=== PATIENT | male | born 1965 | race Hispanic/Latino ===

== ENCOUNTER 2020-09-05 16:26 | Day surgery (SDC) | payer BC ==
[~2020-09-05 16:26] MED LIST: Dexamethasone 20 MG/5 ML VIAL ONE; Lidocaine 1% PF 5 ML VIAL ONE; Ondansetron PF 4 MG/2 ML Vial ONE; PROPOFOL 200 MG/20 ML VIAL ONE
[2020-09-05] MEDS ORDERED: Ondansetron PF 4 MG/2 ML Vial ONE (16:48)
[2020-09-05] MEDS ORDERED: Morphine 4 MG/ML VIAL ONE (16:48)
[2020-09-05 17:13] LABS: #Monocytes 0.8 thou/uL (0.11-0.59); #Neutrophils 8.9 thou/uL (1.40-6.50); %Basophils 0.1 % (0.0-1.0); %Eosinophils 0.3 % (0.0-10.0); %Lymphocytes 9.2 % (21.0-51.0); %Monocytes 7.3 % (0.0-10.0); Hemoglobin 12.7 g/dL (14.0-18.0); Mean Corpuscular HGB CONC 33.5 g/dL (32.0-36.0); Mean Corpuscular Hemoglobin 30.5 pg (27.0-31.0); Mean Corpuscular Volume 91.2 fL (78.0-98.0); Mean Platelet Volume 7.4 fL (7.4-10.4); Platelet Count 314 thou/uL (130-400); RBC Distribution Width 12.2 % (11.5-14.5); Red Blood Cell (RBC) Count 4.15 mill/uL (4.70-6.10); White Blood Cell (WBC) Count 10.7 thou/uL (4.8-10.8)
--- NOTE | 2020-09-05 17:27 | CT ---
CT ABDOMEN AND PELVIS WITHOUT IV CONTRAST: Date: 09/05/2020 PROVIDED CLINICAL HISTORY: Abdominal pain. FINDINGS: The visualized lung bases are free of significant opacity. There are multiple tiny bilateral renal calculi. There is mild bilateral hydronephrosis and hydrouret er. There is no evidence for a ureteral or bladder calculus. There are several calculi seen within th e proximal urethra, largest of which measures about 6.0 mm. There is moderate distention of the urina ry bladder without surrounding fat stranding. The solid abdominal organs demonstrate an otherwise unremarkable unenhanced Ct appearance. There is mild bilateral perinephric fat stranding. No additional fat stranding, free fluid, or free a ir apparent. There is no evidence for appendicitis. No evidence for bowel obstruction. Scattered athe rosclerotic vascular calcifications are minimal. The osseous structures demonstrate no concerning lytic or blastic lesions. IMPRESSION: 1. Several urethral calculi are demonstrated. There is moderate distention of the urinary bladder wi th attendant mild bilateral hydroureteronephrosis. 2. Bilateral nephrolithiasis. POS: [facility]
[2020-09-05 17:32] LABS: ALT (SGPT) 22 U/L (8-55); AST (SGOT) 16 U/L (5-34); Albumin 3.8 g/dL (3.5-5.0); Alkaline Phosphatase 80 U/L (40-110); Anion Gap 16 mmol/L (10-20); BUN (Urea Nitrogen) 29 mg/dL (8.4-25.7); Bilirubin, Total 0.5 mg/dL (0.2-1.2); Calc. Creatinine Clearance 0 mL/min (70-130); Calcium 9.1 mg/dL (7.8-10.44); Carbon Dioxide 23 mmol/L (22-29); Chloride 102 mmol/L (98-107); Estimated GFR-MDRD 51; Globulin 3.7 g/dL (2.4-3.5); Glucose 280 mg/dL (70-105); Potassium 3.7 mmol/L (3.5-5.1); Protein, Total 7.5 g/dL (6.0-8.3); Sodium 137 mmol/L (136-145)
[2020-09-05 19:08] LABS: SARS-CoV-2 NAA Rapid Test Not Detected (NotDetected)
[2020-09-05] MEDS ORDERED: Midazolam HCl 2 mg/2 ml Vial ONE (19:15)
[2020-09-05] MEDS ORDERED: Fentanyl 100 MCG/2 ML VIAL ONE (19:16)
--- NOTE | 2020-09-05 19:38 | CON ---
DATE OF CONSULTATION: CHIEF COMPLAINT: Urinary retention. HISTORY OF PRESENT ILLNESS: Mr. Ronquillo is a 55-year-old male with no past significant urologic history, who presented with a 1-day history of inability to void. He presented to the [facility] Emergency Department in [place] initially, while he was visiting the family for the holidays, the patient had progressive difficulty voiding. He presented to the emergency department there, multiple attempts at placement of a Diggs catheter were unsuccessful. He was then transferred to [facility] in [place]. Multiple attempts at placement of a Diggs there were unsuccessful as well. A CT of the abdomen and pelvis was performed, which demonstrated some urethral stones and severe distention of the bladder with mild hydroureteronephrosis bilaterally. Urology was consulted for further evaluation. The patient denies any gross hematuria. No history of kidney stones. No prior procedures on his bladder or prostate. Approximately 3 years ago, he believes he did see a urologist one time for some voiding difficulty and was placed on a medication for two months, although he does not recall the name of the medication. No family history of prostate cancer. No other complaints. REVIEW OF SYSTEMS: Full 12-point review of systems was performed and is negative other than that mentioned in HPI. PAST MEDICAL HISTORY: Type 2 diabetes, hyperlipidemia, hypercholesterolemia, hypertension. PAST SURGICAL HISTORY: Appendectomy, right hip surgery. SOCIAL HISTORY: No alcohol, tobacco, or illicit drugs. He lives at home with family. ALLERGIES: NO KNOWN DRUG ALLERGIES. FAMILY HISTORY: Noncontributory. MEDICATIONS: 1. Metformin. 2. Losartan/hydrochlorothiazide. 3. Amlodipine. 4. Prednisone. 5. Glipizide. PHYSICAL EXAMINATION: VITAL SIGNS: Blood pressure 177/97, pulse 85, respirations 18, temperature 98.1, oxygen saturation 95% on room air. GENERAL: He is awake and alert. No apparent distress. CARDIOVASCULAR: Regular rhythm. PULMONARY: Breathing unlabored. ABDOMEN: Soft, positive tenderness to palpation in the suprapubic area. Suprapubic fullness. No CVA tenderness. EXTREMITIES: Warm and well perfused. No edema. NEUROLOGIC: No focal deficits. LABORATORY DATA: White blood cell count 10.7, hemoglobin 12.7, hematocrit 37.9, platelets 314. Sodium 137, potassium 3.7, chloride 102, bicarb 23, BUN 29, creatinine 1.44, glucose 280. RADIOLOGY DATA: CT of the abdomen and pelvis as stated above. These films were reviewed and agreed with radiologist's interpretation. ASSESSMENT: A 55-year-old male with urinary retention, urethral stones, bilateral hydroureteronephrosis. PLAN: I reviewed the patient's clinical scenario with him. I explained that the etiology of his urinary retention is unclear. He does have several urethral stones, this may be contributing. He may also have a stricture with some associated calcifications. I discussed options with the patient. After indications/risks/benefits/alternatives/possible outcomes were discussed with the patient in detail, he elects to proceed with cystoscopy, possible urethral stone removal, dilation, Diggs catheter placement, and all indicated procedures. Job ID: [id number]
--- NOTE | 2020-09-05 20:55 | OP ---
DATE OF PROCEDURE: 09/05/2020 CANDY VENDOR: None. PREPROCEDURE DIAGNOSES: 1. Urinary retention. 2. Urethral stones. POSTPROCEDURE DIAGNOSES: 1. Urinary retention. 2. Proximal bulbar urethral stricture approximately 2 cm in length. ANESTHESIA: LMA anesthesia. COMPLICATIONS: None. PROCEDURE PERFORMED: Cystoscopy with dilation of urethral stricture. FLUID: See Anesthesia record. BLOOD LOSS: Minimal. SPECIMENS: None. POSTPROCEDURE STATUS: Satisfactory. INDICATIONS FOR PROCEDURE: Mr. Ronquillo is a 55-year-old male, who presented as a transfer from [facility] with urinary retention. Multiple attempts of Diggs catheter placement were unsuccessful. The patient had a CT scan, which demonstrated possible urethral stones and a massively distended bladder with bilateral hydroureteronephrosis. After indications/risks/benefits/alternatives/possible outcomes were discussed with the patient in detail, he elected to proceed with cystoscopy, possible removal of urethral stones, dilation, and all indicated procedures. DESCRIPTION OF PROCEDURE: The patient was taken to the operating room and after successful induction of LMA anesthesia, he was placed in the dorsal lithotomy position. His genitalia were prepped and draped in usual sterile fashion. A time-out was performed, following which a 22-Macedonian rigid cystoscope was inserted into the patient's urethra. There was a false passage in the proximal to mid bulbar urethra. The true lumen was found in the right anterior location and was very small. A Sensor wire was placed through this. Lanre dilators were used to serially dilate the urethra from 12-Macedonian to 20-Macedonian and we were then able to pass the 19-Macedonian rigid cystoscope into the patient's bladder. The prostatic urethra was normal. There was mild bilobar enlargement. The bladder was massively distended. Cystoscopy did not demonstrate any concerning bladder lesions. Ureteral orifices were in normal orthotopic location bilaterally. The cystoscope was removed leaving the Sensor wire in place. We did not encounter any significant stones in the urethra. An 18-Macedonian Councill catheter was placed over the wire and 10 mL of sterile water was placed in the balloon. The wire was removed. The patient tolerated the procedure well, was awoken from anesthesia and transferred to the PACU in satisfactory condition. PLAN: Leave Diggs catheter in place for 5 to 7 days. Follow up with Urology at that time for a voiding trial. Job ID: [id number]
== END 2020-09-05 21:45 | disposition home or self-care (01) ==
LOC: ERS 16:26 → SDC/OP 19:54
PROVIDERS: ATTEND Urology
PROC: 0T7D8ZZ Dilation of Urethra, Via Natural or Artificial Opening Endoscopic (ICD-10-PCS; principal; 2020-09-05)
DX: N35.912 Unspecified bulbous urethral stricture, male (principal); N21.1 Calculus in urethra; N13.2 Hydronephrosis with renal and ureteral calculous obstruction; E11.9 Type 2 diabetes mellitus without complications; E78.5 Hyperlipidemia, unspecified; E78.00 Pure hypercholesterolemia, unspecified; I10 Essential (primary) hypertension; Z79.84 Long term (current) use of oral hypoglycemic drugs; Z79.899 Other long term (current) drug therapy
CPT/HCPCS: 74176; 80053; 85025; 96365; 96366; 96375; J1956; J2250; J2270; J2405; J3010; U0002